=== PATIENT | female | born 1965 | race Caucasian/White ===

== ENCOUNTER → 2018-07-06 | Outpatient (CLI) | payer OTHER ==
[~2018-07-06] MED LIST: None per pt
== END | disposition home or self-care (01) ==
LOC: STAR 14:35
PROVIDERS: ATTEND Surgery
DX: Z02.9 Encounter for administrative examinations, unspecified (principal)

== ENCOUNTER 2018-07-12 10:05 | Day surgery (SDC) | payer OTHER ==
[~2018-07-12] VITALS: Ht 170.2 cm; Wt 61.5 kg
[2018-07-12] MEDS ORDERED: BUPIVACAINE/PF-EPI 0.5% 1:200K ONE (10:21)
[2018-07-12] MEDS ORDERED: LACTATED RINGERS 1,000 ML IV SCH (10:24)
[2018-07-12] MEDS ORDERED: ACETAMINOPHEN 500 MG TABLET PO ONE (10:30)
[2018-07-12] MEDS ORDERED: ONDANSETRON ODT 8 MG PO ONE (10:30)
[2018-07-12] MEDS ORDERED: DIAZEPAM 5 MG TABLET PO ONE (10:30)
[2018-07-12] MEDS ORDERED: SCOPOLAMINE PATCH, 1.5MG PATCH.TD72 TD ONE (10:30)
[2018-07-12] MEDS ORDERED: GABAPENTIN 300 MG CAPSULE PO ONE (10:30)
[2018-07-12 10:36] VITALS: BP 121/82
[2018-07-12 11:04] LABS: HCG UR SG 1.021 (1.003-1.030)
[2018-07-12] MEDS ORDERED: MIDAZOLAM 1 MG/ML, 2ML ONE (12:34)
[2018-07-12] MEDS ORDERED: FENTANYL PF 250 MCG/5ML ONE (12:34)
[2018-07-12] MEDS ORDERED: LIDOCAINE 2% 100MG/5ML SYRINGE ONE (13:23)
[2018-07-12] MEDS ORDERED: SUCCINYLCHOLINE 20 MG/ML, 10ML ONE (13:23)
[2018-07-12] MEDS ORDERED: KETOROLAC 30 MG/1 ML ONE (13:23)
[2018-07-12] MEDS ORDERED: ROCURONIUM 10MG/ML,5ML ONE (13:23)
[2018-07-12] MEDS ORDERED: BUPIVACAINE/PF-EPI 0.5% 1:200K INFIL ONE (13:48)
[2018-07-12] MEDS ORDERED: ONDANSETRON 2MG/ML, 2ML ONE (13:56)
[2018-07-12] MEDS ORDERED: PROPOFOL 10 MG/ML, 20ML ONE (13:56)
[2018-07-12] MEDS ORDERED: CEFAZOLIN 1,000 MG ONE (13:56)
[2018-07-12] MEDS ORDERED: DEXAMETHASONE 4 MG/ML, 1ML ONE (13:56)
[2018-07-12] MEDS ORDERED: SCOPOLAMINE PATCH, 1.5MG PATCH.TD72 TD PRN (14:00)
[2018-07-12] MEDS ORDERED: ALBUTEROL SULFATE 2.5 MG/3 ML NPPB PRN (14:00)
[2018-07-12] MEDS ORDERED: MIDAZOLAM 1 MG/ML, 2ML IV PRN (14:00)
[2018-07-12] MEDS ORDERED: PROMETHAZINE 25 MG/ML, 1ML IV PRN (14:00)
[2018-07-12] MEDS ORDERED: HYDROmorphone 2 MG/ML, 1ML IVPush PRN (14:00)
[2018-07-12] MEDS ORDERED: FENTANYL PF 100 MCG/2ML IV PRN (14:00)
[2018-07-12] MEDS ORDERED: OXYcodone 5 MG/5 ML ORAL.SOL UDC PO PRN (14:00)
[2018-07-12] MEDS ORDERED: ONDANSETRON 2MG/ML, 2ML IV PRN (14:00)
[2018-07-12] MEDS ORDERED: MEPERIDINE/PF 25MG/0.5ML IVPush PRN (14:00)
== END 2018-07-12 15:45 | disposition home or self-care (01) ==
LOC: OUT 10:05
PROVIDERS: ATTEND Surgery
DX: K43.6 Other and unspecified ventral hernia with obstruction, without gangrene (principal); Z98.890 Other specified postprocedural states; Z72.89 Other problems related to lifestyle
CPT/HCPCS: 49572; 81025; J0330; J0690; J1100; J1885; J2250; J2405; J2704; J3010; J7120; Q0162

== ENCOUNTER 2018-09-20 14:48 | Outpatient (CLI) | payer OTHER | END 2018-09-20 23:59 | disposition home or self-care (01) | LOC: STAR 14:48 | PROVIDERS: ATTEND Surgery | DX: Z02.9 Encounter for administrative examinations, unspecified (principal) ==

== ENCOUNTER 2018-09-27 08:28 | Day surgery (SDC) | payer OTHER ==
[~2018-09-27] VITALS: Ht 168.9 cm; Wt 65.0 kg
[~2018-09-27 08:28] MED LIST changes: +BUPIVACAINE/PF-EPI 0.5% 1:200K ONE
[2018-09-27] MEDS ORDERED: LACTATED RINGERS 1,000 ML IV SCH (08:51)
[2018-09-27 09:08] VITALS: BP 124/68
[2018-09-27] MEDS ORDERED: FENTANYL PF 250 MCG/5ML ONE (09:39)
[2018-09-27] MEDS ORDERED: MIDAZOLAM 1 MG/ML, 2ML ONE (09:39)
[2018-09-27] MEDS ORDERED: GLYCOPYRROLATE 0.2MG/1ML, 5ML ONE (09:45)
[2018-09-27] MEDS ORDERED: PROPOFOL 10 MG/ML, 20ML ONE (09:45)
[2018-09-27] MEDS ORDERED: SUCCINYLCHOLINE 20 MG/ML, 10ML ONE (09:45)
[2018-09-27] MEDS ORDERED: NEOSTIGMINE 1 MG/ML, 10ML ONE (09:45)
[2018-09-27] MEDS ORDERED: ROCURONIUM 10MG/ML,5ML ONE (09:45)
[2018-09-27] MEDS ORDERED: CEFAZOLIN 1,000 MG ONE (09:45)
[2018-09-27] MEDS ORDERED: ACETAMINOPHEN 325 MG TABLET PO PRN (10:00)
[2018-09-27] MEDS ORDERED: OXYcodone 5 MG/5 ML ORAL.SOL UDC PO PRN (10:00)
[2018-09-27] MEDS ORDERED: FENTANYL PF 100 MCG/2ML IV PRN (10:00)
[2018-09-27] MEDS ORDERED: DIAZEPAM 5 MG/ML, 2ML IVPush PRN (10:00)
[2018-09-27] MEDS ORDERED: HYDROmorphone 2 MG/ML, 1ML IVPush PRN (10:00)
[2018-09-27] MEDS ORDERED: FENTANYL PF 100 MCG/2ML ONE (10:49)
[2018-09-27] MEDS ORDERED: ACETAMINOPHEN 650 MG/20.3 ML UDC ONE (10:49)
[2018-09-27] MEDS ORDERED: OXYcodone 5 MG/5 ML ORAL.SOL UDC ONE (10:50)
== END 2018-09-27 12:50 | disposition home or self-care (01) ==
LOC: OUT 08:28
PROVIDERS: ATTEND Surgery
DX: K43.2 Incisional hernia without obstruction or gangrene (principal); Z72.89 Other problems related to lifestyle
CPT/HCPCS: 49560; 49568; 81025; C1781; J0330; J0690; J2250; J2704; J2710; J3010; J3490; J7120